=== PATIENT | female | born 1980 | race Caucasian/White ===

== ENCOUNTER 2017-12-11 21:08 | Emergency (ER) | payer SELFPAY ==
[2017-12-11 21:37] LABS: Pregnancy Test - Urine (BHCG) Negative (Negative); Pregu Control Background? CLEAR/WHITE (CLR/WHITE); Pregu Control Bar Appear? YES (CONTROL BAR); Specific Gravity 1.028 (1.002-1.036)
[2017-12-11 21:38] LABS: Bilirubin Negative (Negative); Blood, Urine Large (Negative); Clarity Cloudy (Clear); Glucose, Urine (Dipstick) Negative (Negative); Leukocyte Small (Negative); Nitrite Positive (Negative); Protein, Urine (Dipstick) 30 mg/dL (Neg-Trace); Specific Gravity, Urine 1.028 (1.002-1.036); pH, Urine 5.5 (5.0-9.0)
[2017-12-11 21:46] LABS: Bacteria/HPF 2+ HPF (None Seen); Other Microscopic Description FEW CLUE CELLS; RBC/HPF GREATER THAN 50-TNTC HPF (0-3); Squamous Epithelial 0-3 HPF (0-3)
[2017-12-11] MEDS ORDERED: Azithromycin 250 MG TAB ONE (21:56)
[2017-12-11] MEDS ORDERED: cefTRIAXone\\ROCEPHIN 500 MG VIAL ONE (21:56)
== END 2017-12-11 22:10 | disposition home or self-care (01) ==
LOC: BURERS 21:08
DX: N70.03 Acute salpingitis and oophoritis (principal); N73.9 Female pelvic inflammatory disease, unspecified; F17.210 Nicotine dependence, cigarettes, uncomplicated; Z87.442 Personal history of urinary calculi
CPT/HCPCS: 81003; 81015; 81025; 87077; 87086; 87186; 87480; 87491; 87510; 87591; 87660; 96372; J0696